=== PATIENT | female | born 1980 | race Caucasian/White ===

== ENCOUNTER 2020-10-20 15:10 | Inpatient (IN) | payer OTHER ==
[2020-10-20 17:05] VITALS: BMI 30.7
[2020-10-20 17:07] LABS: BASO % 0.4 % (0-2.0); EOS % 1.7 % (0-4.5); HEMATOCRIT 38.2 % (32.4-45.2); HEMOGLOBIN 13.1 GM/dL (10.7-15.3); MCH 30.8 pg (25.7-33.7); MCHC 34.3 g/dl (32.0-36.0); MEAN CELL VOLUME 89.8 fl (80-96); MONO % 6.9 % (3.8-10.2); PLATELET COUNT 180 K/MM3 (134-434); RBC 4.26 M/mm3 (3.60-5.2); WHITE BLOOD COUNT 12.1 K/mm3 (4.0-10.0)
[2020-10-20 17:11] LABS: INR 0.91 (0.83-1.09)
[2020-10-20] MEDS ORDERED: DINOPROSTONE 10 MG VAGINAL SUPPOSITORY VG ONE (17:13)
[2020-10-20 17:14] LABS: ACTIVATED PTT 28.1 SECONDS (25.2-36.5)
[2020-10-20 17:38] LABS: BLOOD UREA NITROGEN 13.5 mg/dL (7-18); CALCIUM 9.2 mg/dL (8.5-10.1)
[2020-10-20 17:42] LABS: CREATININE 0.6 mg/dL (0.55-1.3)
[2020-10-20 17:56] LABS: SYPHILIS W/ RPR CONF NON-REACTIVE (NONREACTIVE)
[2020-10-20 18:25] LABS: HIV INTERPRETATION NEGATIVE (NEGATIVE)
[2020-10-20] MEDS: DEXTROSE 5%-LACTATED RINGERS 1,000 ML IV SCH (21:00)
[2020-10-21] MEDS: DEXTROSE 5%-LACTATED RINGERS 1,000 ML IV SCH ×3 (04:15→19:15)
[2020-10-21] MEDS ORDERED: OXYTOCIN 30 UNITS in 0.9% NS 30 UNIT/500 ML INFUS.BAG IVPB ONE (11:50)
[2020-10-21] MEDS: OXYTOCIN 30 UNITS in 0.9% NS 30 UNIT/500 ML INFUS.BAG IVPB SCH (12:00)
[2020-10-21] MEDS: LORATADINE 10 MG TABLET PO SCH (22:00)
[2020-10-22] MEDS: DEXTROSE 5%-LACTATED RINGERS 1,000 ML IV SCH (02:30)
[2020-10-22] MEDS: LEVOTHYROXINE NA 112 MCG TABLET (FP) PO SCH (06:20)
[2020-10-22] MEDS ORDERED: FENTANYL/BUPIVACAINE/NS/PF - PCEA - 50 ML DISP.SYRIN EP ONE ×4 (08:19→22:25)
[2020-10-22] MEDS ORDERED: PCA PUMP NR ONE ×2 (08:19→22:25)
[2020-10-22] MEDS ORDERED: ELECTROLYTE-148 SOLN 1,000 ML IV SCH (08:20)
[2020-10-22] MEDS: FENTANYL/BUPIVACAINE/NS/PF - PCEA - 50 ML DISP.SYRIN EP SCH ×4 (08:50→22:30)
[2020-10-22] MEDS ORDERED: ONDANSETRON 4 MG/2 ML VIAL ONE ×2 (08:58→18:34)
[2020-10-22] MEDS ORDERED: NALOXONE HCL 0.4 MG/ML VIAL IVPUSH PRN (08:58)
[2020-10-22] MEDS: ELECTROLYTE-148 SOLN 1,000 ML IV SCH ×3 (09:20→23:50)
[2020-10-22] MEDS ORDERED: AMPICILLIN - 2 GM in SODIUM CHLORIDE 100 ML IVPB ONE (12:00)
[2020-10-22] MEDS ORDERED: SODIUM CHLORIDE 100 ML IVPB ONE ×2 (12:16→15:27)
[2020-10-22] MEDS ORDERED: AMPICILLIN SODIUM 2 GM VIAL ONE (12:17)
[2020-10-22] MEDS ORDERED: AMPICILLIN SODIUM 1 GM VIAL ONE ×3 (15:27→23:57)
[2020-10-22] MEDS: AMPICILLIN - 1 GM in SODIUM CHLORIDE 100 ML IVPB SCH ×2 (15:41→20:00)
[2020-10-22] MEDS ORDERED: BUPIVACAINE HCL/PF 0.25% (2.5MG/ML) 10 ML VIAL ONE (20:38)
[2020-10-22] MEDS: LORATADINE 10 MG TABLET PO SCH (22:18)
[2020-10-23] MEDS ORDERED: FENTANYL/BUPIVACAINE/NS/PF - PCEA - 50 ML DISP.SYRIN EP ONE ×4 (01:57→12:29)
[2020-10-23] MEDS: FENTANYL/BUPIVACAINE/NS/PF - PCEA - 50 ML DISP.SYRIN EP SCH ×4 (02:00→12:35)
[2020-10-23] MEDS ORDERED: AMPICILLIN SODIUM 1 GM VIAL ONE ×3 (03:58→11:27)
[2020-10-23] MEDS: AMPICILLIN - 1 GM in SODIUM CHLORIDE 100 ML IVPB SCH ×5 (04:00→17:16)
[2020-10-23] MEDS ORDERED: BUPIVACAINE HCL/PF 0.25% (2.5MG/ML) 10 ML VIAL ONE ×3 (04:06→10:20)
[2020-10-23] MEDS ORDERED: OXYTOCIN 30 UNITS in 0.9% NS 30 UNIT/500 ML INFUS.BAG IVPB ONE (05:57)
[2020-10-23] MEDS: OXYTOCIN 30 UNITS in 0.9% NS 30 UNIT/500 ML INFUS.BAG IVPB SCH (06:00)
[2020-10-23] MEDS: LEVOTHYROXINE NA 112 MCG TABLET (FP) PO SCH (06:15)
[2020-10-23] MEDS: ELECTROLYTE-148 SOLN 1,000 ML IV SCH (06:45)
[2020-10-23] MEDS ORDERED: PCA PUMP NR ONE (09:03)
[2020-10-23] MEDS ORDERED: OXYTOCIN 20 UNITS in 0.9% NS 20 UNIT/1,000 ML INFUS.BAG IV ONE ×2 (14:15→17:19)
[2020-10-23] MEDS ORDERED: LIDOCAINE HCL 1% PRESERVATIVE FREE - 30ML VIAL ONE (14:15)
[2020-10-23] MEDS: OXYTOCIN 20 UNITS in 0.9% NS 20 UNIT/1,000 ML INFUS.BAG IV SCH ×2 (16:20→17:22)
[2020-10-23] MEDS ORDERED: WITCH HAZEL 50% (TUCKS) 40 PAD/JAR PAD TP PRN (16:35)
[2020-10-23] MEDS ORDERED: BISACODYL 10 MG SUPP.RECT RC PRN (16:35)
[2020-10-23] MEDS ORDERED: BENZOCAINE 20% 57 GM BOTTLE TP PRN (16:35)
[2020-10-23] MEDS ORDERED: BENZOCAINE 28 GM HEMORRHOIDAL OINTMENT TP PRN (16:35)
[2020-10-23] MEDS ORDERED: METHYLERGONOVINE MALEATE 0.2 MG/1 ML AMP IM PRN (16:35)
[2020-10-23 16:52] LABS: CORD BASE EXCESS -10.5 mmol/L (0-2); CORD HCO3 15.2 mmHg (20-29); CORD PCO2 33.8 mmHg (30-78); CORD pH 7.272 (7.14-7.44)
[2020-10-23 16:53] LABS: CORD BASE EXCESS -10.5 mmol/L (0-2); CORD HCO3 17.3 mmHg (20-29); CORD pH 7.203 (7.14-7.44)
[2020-10-23] MEDS ORDERED: ACETAMINOPHEN 325 MG TABLET (FP) ONE (17:19)
[2020-10-23] MEDS ORDERED: IBUPROFEN 600 MG TABLET (FP) PO ONE (17:19)
[2020-10-23] MEDS: ACETAMINOPHEN 325 MG TABLET (FP) PO PRN ×2 (17:23→23:45)
[2020-10-23] MEDS: IBUPROFEN 600 MG TABLET (FP) PO PRN ×2 (17:23→23:45)
[2020-10-23] MEDS: LORATADINE 10 MG TABLET PO SCH (21:41)
[2020-10-24] MEDS: LEVOTHYROXINE NA 112 MCG TABLET (FP) PO SCH (06:02)
[2020-10-24 08:17] LABS: BASO % 0.4 % (0-2.0); EOS % 1.4 % (0-4.5); HEMATOCRIT 32.5 % (32.4-45.2); HEMOGLOBIN 11.2 GM/dL (10.7-15.3); LYMPH % 8.5 % (8-40); MCHC 34.6 g/dl (32.0-36.0); MEAN CELL VOLUME 89.7 fl (80-96); MEAN PLT VOLUME 9.1 fl (7.5-11.1); MONO % 6.9 % (3.8-10.2); NEUT % 82.8 % (42.8-82.8); PLATELET COUNT 203 K/MM3 (134-434); RBC 3.63 M/mm3 (3.60-5.2); RDW 13.4 % (11.6-15.6); WHITE BLOOD COUNT 18.6 K/mm3 (4.0-10.0)
[2020-10-24] MEDS: IBUPROFEN 600 MG TABLET (FP) PO PRN ×2 (09:01→21:15)
[2020-10-24] MEDS: PRENATAL VITAMINS W/ FOLIC ACID TABLET (FP) PO SCH (09:01)
[2020-10-24] MEDS: ACETAMINOPHEN 325 MG TABLET (FP) PO PRN ×2 (09:02→21:14)
[2020-10-24] MEDS: LORATADINE 10 MG TABLET PO SCH (21:15)
[2020-10-24] MEDS: FAMOTIDINE 20 MG TABLET PO PRN (21:16)
[2020-10-24] MEDS ORDERED: SENNOSIDES/DOCUSATE COMBO (SENNA PLUS) TABLET (UD) PO PRN (22:00)
[2020-10-25] MEDS: LEVOTHYROXINE NA 112 MCG TABLET (FP) PO SCH (06:03)
[2020-10-25 09:05] LABS: BASO % 0.6 % (0-2.0); EOS % 3.3 % (0-4.5); HEMATOCRIT 33.6 % (32.4-45.2); HEMOGLOBIN 11.8 GM/dL (10.7-15.3); LYMPH % 12.9 % (8-40); MCH 31.4 pg (25.7-33.7); MEAN CELL VOLUME 89.5 fl (80-96); MEAN PLT VOLUME 9.2 fl (7.5-11.1); MONO % 6.3 % (3.8-10.2); NEUT % 76.9 % (42.8-82.8); PLATELET COUNT 194 K/MM3 (134-434); RBC 3.76 M/mm3 (3.60-5.2); RDW 13.1 % (11.6-15.6); WHITE BLOOD COUNT 12.4 K/mm3 (4.0-10.0)
[2020-10-25] MEDS: IBUPROFEN 600 MG TABLET (FP) PO PRN (09:21)
[2020-10-25] MEDS: ACETAMINOPHEN 325 MG TABLET (FP) PO PRN (09:22)
[2020-10-25] MEDS: FAMOTIDINE 20 MG TABLET PO PRN (12:08)
[2020-10-25] MEDS: PRENATAL VITAMINS W/ FOLIC ACID TABLET (FP) PO SCH (12:08)
[2020-10-25 12:14] VITALS: BP 124/77; PULSE 91; TEMP 97.7
== END 2020-10-25 14:10 | disposition home or self-care (01) | DRG 560 ==
LOC: JLDR 15:10 → J3W 10-23 17:45
PROVIDERS: ADMIT Obstetrics & Gynecology; ATTEND Obstetrics & Gynecology
PROC: 10E0XZZ Delivery of Products of Conception, External Approach (ICD-10-PCS; principal; 2020-10-23)
PROC: 0HQ9XZZ Repair Perineum Skin, External Approach (ICD-10-PCS; 2020-10-23)
DX: O36.5930 Maternal care for other known or suspected poor fetal growth, third trimester, not applicable or unspecified (principal); O70.0 First degree perineal laceration during delivery; O99.824 Streptococcus B carrier state complicating childbirth; F98.8 Other specified behavioral and emotional disorders with onset usually occurring in childhood and adolescence; O99.284 Endocrine, nutritional and metabolic diseases complicating childbirth; E06.3 Autoimmune thyroiditis; O75.89 Other specified complications of labor and delivery; F41.9 Anxiety disorder, unspecified; Z3A.37 37 weeks gestation of pregnancy; Z37.0 Single live birth
CPT/HCPCS: 36415; 36600; 59409; 80048; 82803; 85025; 85610; 85730; 86780; 86850; 86900; 86901; 87389; 88307-TC; C9803; U0003; U0005